=== PATIENT | female | born 1985 | race Caucasian/White ===

== ENCOUNTER 2019-11-13 18:01 | Observation (INO) | payer OTHER ==
[2019-11-13 18:26] LABS: Glucose,Whole Blood 102 mg/dL (75-99)
[2019-11-13 18:36] LABS: Basophils % (A) 1 %; Eosinophils # (A) 0.1 k/uL (0-0.7); Eosinophils % (A) 2 %; HCT 39.2 % (34.0-46.0); HGB 12.6 gm/dL (11.4-16.0); Lymphocytes # (A) 2.5 k/uL (1.0-4.8); Lymphocytes % (A) 43 %; MCH 28.8 pg (25.0-35.0); Mean Platelet Volume 7.7; Monocytes # (A) 0.4 k/uL (0-1.0); Monocytes % (A) 7 %; Neutrophils # (A) 2.6 k/uL (1.3-7.7); Neutrophils % (A) 45 %; Platelet Count 158 k/uL (150-450); RBC 4.36 m/uL (3.80-5.40); WBC 5.8 k/uL (3.8-10.6)
--- NOTE | 2019-11-13 18:36 | ED ---
Overdose HPI - General Chief Complaint: Overdose Stated Complaint: Poss overdose Time Seen by Provider: 11/13/19 18:30 Source: patient, RN notes reviewed, old records reviewed Mode of arrival: wheelchair Limitations: no limitations - History of Present Illness Initial Comments: This is a 34-year-old female DF for evaluation patient presents today for ac cidental versus intentional overdose, patient denies suicidal thoughts. Patient here is today is very Unresponsive secondary to clinical condition, patient does and as prescribed psychiatric medications takes a lot of these medications tonight. Patient is very sleepy and slow to respond MD Complaint: intentional overdose, accidental overdose, other (Unknown) -: unknown Intent: unwilling to say How Overdose Was Discovered: family/friend present at time Context: Accidental Overdose: uncertain what happened Associated Symptoms: depression Treatments Prior to Arrival: none - Related Data Allergies Allergy/AdvReac Type Severity Reaction Status Date / Time No Known Allergies Allergy Verified 11/13/19 18:10 Review of Systems ROS Statement: Those systems with pertinent positive or pertinent negative responses have been documented in the HPI. ROS Other: All systems not noted in ROS Statement are negative. Past Medical History Past Medical History: Unable to Obtain History of Any Multi-Drug Resistant Organisms: None Reported Past Surgical History: Unable to Obtain Past Psychological History: Unable to Obtain Smoking Status: Current every day smoker Past Alcohol Use History: None Reported Past Drug Use History: None Reported General Exam Limitations: altered mental status General appearance: alert, lethargic Head exam: Present: atraumatic, normocephalic, normal inspection Eye exam: Present: normal appearance, PERRL, EOMI. Absent: scleral icterus, conjunctival injection, periorbital swelling ENT exam: Present: normal exam, mucous membranes moist Neck exam: Present: normal inspection. Absent: tenderness, meningismus, lymphadenopathy Respiratory exam: Present: normal lung sounds bilaterally. Absent: respiratory distress, wheezes, rales, rhonchi, stridor Cardiovascular Exam: Present: normal rhythm, tachycardia, normal heart sounds. Absent: systolic murmur, diastolic murmur, rubs, gallop, clicks GI/Abdominal exam: Present: soft, normal bowel sounds. Absent: distended, tenderness, guarding, rebound, rigid Extremities exam: Present: normal inspection, full ROM, normal capillary refill. Absent: tenderness, pedal edema, joint swelling, calf tenderness Back exam: Present: normal inspection Neurological exam: Present: alert, oriented X3, CN II-XII intact Psychiatric exam: Present: normal affect, normal mood Skin exam: Present: warm, dry, intact, normal color. Absent: rash Course Vital Signs 11/13/19 11/13/19 11/13/19 18:07 18:27 18:30 Temperature 98.7 F Pulse Rate 127 H 107 H Pulse Rate [ 105 H Finishing Wire Sawyer ] Respiratory 16 18 Rate Blood Pressure 129/87 131/95 O2 Sat by Pulse 98 99 Oximetry 11/13/19 11/13/19 11/13/19 19:00 19:15 19:30 Temperature Pulse Rate 87 87 87 Pulse Rate [ Finishing Wire Sawyer ] Respiratory 14 13 12 Rate Blood Pressure 102/70 97/65 95/73 O2 Sat by Pulse 100 100 98 Oximetry 11/13/19 19:45 Temperature Pulse Rate 79 Pulse Rate [ Finishing Wire Sawyer ] Respiratory 13 Rate Blood Pressure 109/79 O2 Sat by Pulse 99 Oximetry - Reevaluation(s) Reevaluation #1: 11/13/19 19:55 Medical records reviewed Reevaluation #2: 11/13/19 19:55 Patient still not really responding very well - Consultations Consultation #1: Spoke with Dr. London will admit this patient Medical Decision Making - Medical Decision Making 34 female DF for evaluation of altered mental status and unresponsiveness secondary to likely TCA accidental overdose versus intentional overdose will admit for monitoring of clinical condition and mental state and have psychiatric evaluation - Lab Data Result diagrams: 11/13/19 18:25 11/13/19 18:25 Lab Results 11/13/19 11/13/19 11/13/19 Range/Units 18:25 18:25 18:25 WBC 5.8 (3.8-10.6) k/uL RBC 4.36 (3.80-5.40) m/uL Hgb 12.6 (11.4-16.0) gm/dL Hct 39.2 (34.0-46.0) % MCV 90.0 (80.0-100.0) fL MCH 28.8 (25.0-35.0) pg MCHC 32.0 (31.0-37.0) g/dL RDW 13.0 (11.5-15.5) % Plt Count 158 (150-450) k/uL Neutrophils % 45 % Lymphocytes % 43 % Monocytes % 7 % Eosinophils % 2 % Basophils % 1 % Neutrophils # 2.6 (1.3-7.7) k/uL Lymphocytes # 2.5 (1.0-4.8) k/uL Monocytes # 0.4 (0-1.0) k/uL Eosinophils # 0.1 (0-0.7) k/uL Basophils # 0.0 (0-0.2) k/uL Sodium 138 (137-145) mmol/L Potassium 3.9 (3.5-5.1) mmol/L Chloride 106 (98-107) mmol/L Carbon Dioxide 23 (22-30) mmol/L Anion Gap 9 mmol/L BUN 7 (7-17) mg/dL Creatinine 0.72 (0.52-1.04) mg/dL Est GFR (CKD-EPI)AfAm >90 (>60 ml/min/1.73 sqM) Est GFR (CKD-EPI)NonAf >90 (>60 ml/min/1.73 sqM) Glucose 94 (74-99) mg/dL POC Glucose (mg/dL) 102 H (75-99) mg/dL POC Glu Brush Maker ID Ofelia Rivera Calcium 9.4 (8.4-10.2) mg/dL Total Bilirubin 0.4 (0.2-1.3) mg/dL AST 38 H (14-36) U/L ALT 33 (4-34) U/L Alkaline Phosphatase 65 (38-126) U/L Total Protein 7.2 (6.3-8.2) g/dL Albumin 4.7 (3.5-5.0) g/dL Urine Color Urine Appearance (Clear) Urine pH (5.0-8.0) Ur Specific Axson (1.001-1.035) Urine Protein (Negative) Urine Glucose (UA) (Negative) Urine Ketones (Negative) Urine Blood (Negative) Urine Nitrite (Negative) Urine Bilirubin (Negative) Urine Urobilinogen (<2.0) mg/dL Ur Leukocyte Esterase (Negative) Urine HCG, Qual (Not Detectd) Salicylates mg/dL Urine Opiates Screen (NotDetected) Ur Oxycodone Screen (NotDetected) Urine Methadone Screen (NotDetected) Ur Propoxyphene Screen (NotDetected) Acetaminophen ug/mL Ur Barbiturates Screen (NotDetected) U Tricyclic Antidepress (NotDetected) Ur Phencyclidine Scrn (NotDetected) Ur Amphetamines Screen (NotDetected) U Methamphetamines Scrn (NotDetected) U Benzodiazepines Scrn (NotDetected) Urine Cocaine Screen (NotDetected) U Marijuana (THC) Screen (NotDetected) Serum Alcohol <10 mg/dL 11/13/19 11/13/19 11/13/19 Range/Units 18:25 18:51 18:51 WBC (3.8-10.6) k/uL RBC (3.80-5.40) m/uL Hgb (11.4-16.0) gm/dL Hct (34.0-46.0) % MCV (80.0-100.0) fL MCH (25.0-35.0) pg MCHC (31.0-37.0) g/dL RDW (11.5-15.5) % Plt Count (150-450) k/uL Neutrophils % % Lymphocytes % % Monocytes % % Eosinophils % % Basophils % % Neutrophils # (1.3-7.7) k/uL Lymphocytes # (1.0-4.8) k/uL Monocytes # (0-1.0) k/uL Eosinophils # (0-0.7) k/uL Basophils # (0-0.2) k/uL Sodium (137-145) mmol/L Potassium (3.5-5.1) mmol/L Chloride (98-107) mmol/L Carbon Dioxide (22-30) mmol/L Anion Gap mmol/L BUN (7-17) mg/dL Creatinine (0.52-1.04) mg/dL Est GFR (CKD-EPI)AfAm (>60 ml/min/1.73 sqM) Est GFR (CKD-EPI)NonAf (>60 ml/min/1.73 sqM) Glucose (74-99) mg/dL POC Glucose (mg/dL) (75-99) mg/dL POC Glu Brush Maker ID Calcium (8.4-10.2) mg/dL Total Bilirubin (0.2-1.3) mg/dL AST (14-36) U/L ALT (4-34) U/L Alkaline Phosphatase (38-126) U/L Total Protein (6.3-8.2) g/dL Albumin (3.5-5.0) g/dL Urine Color Light Yellow Urine Appearance Clear (Clear) Urine pH 6.5 (5.0-8.0) Ur Specific Axson 1.002 (1.001-1.035) Urine Protein Negative (Negative) Urine Glucose (UA) Negative (Negative) Urine Ketones Negative (Negative) Urine Blood Negative (Negative) Urine Nitrite Negative (Negative) Urine Bilirubin Negative (Negative) Urine Urobilinogen <2.0 (<2.0) mg/dL Ur Leukocyte Esterase Negative (Negative) Urine HCG, Qual Not Detected (Not Detectd) Salicylates <1.0 mg/dL Urine Opiates Screen Not Detected (NotDetected) Ur Oxycodone Screen Not Detected (NotDetected) Urine Methadone Screen Not Detected (NotDetected) Ur Propoxyphene Screen Not Detected (NotDetected) Acetaminophen <10.0 ug/mL Ur Barbiturates Screen Not Detected (NotDetected) U Tricyclic Antidepress Detected H (NotDetected) Ur Phencyclidine Scrn Not Detected (NotDetected) Ur Amphetamines Screen Not Detected (NotDetected) U Methamphetamines Scrn Not Detected (NotDetected) U Benzodiazepines Scrn Not Detected (NotDetected) Urine Cocaine Screen Not Detected (NotDetected) U Marijuana (THC) Screen Not Detected (NotDetected) Serum Alcohol mg/dL 11/13/19 Range/Units 19:36 WBC (3.8-10.6) k/uL RBC (3.80-5.40) m/uL Hgb (11.4-16.0) gm/dL Hct (34.0-46.0) % MCV (80.0-100.0) fL MCH (25.0-35.0) pg MCHC (31.0-37.0) g/dL RDW (11.5-15.5) % Plt Count (150-450) k/uL Neutrophils % % Lymphocytes % % Monocytes % % Eosinophils % % Basophils % % Neutrophils # (1.3-7.7) k/uL Lymphocytes # (1.0-4.8) k/uL Monocytes # (0-1.0) k/uL Eosinophils # (0-0.7) k/uL Basophils # (0-0.2) k/uL Sodium (137-145) mmol/L Potassium (3.5-5.1) mmol/L Chloride (98-107) mmol/L Carbon Dioxide (22-30) mmol/L Anion Gap mmol/L BUN (7-17) mg/dL Creatinine (0.52-1.04) mg/dL Est GFR (CKD-EPI)AfAm (>60 ml/min/1.73 sqM) Est GFR (CKD-EPI)NonAf (>60 ml/min/1.73 sqM) Glucose (74-99) mg/dL POC Glucose (mg/dL) 98 (75-99) mg/dL POC Glu Brush Maker ID Kika Vcikers Calcium (8.4-10.2) mg/dL Total Bilirubin (0.2-1.3) mg/dL AST (14-36) U/L ALT (4-34) U/L Alkaline Phosphatase (38-126) U/L Total Protein (6.3-8.2) g/dL Albumin (3.5-5.0) g/dL Urine Color Urine Appearance (Clear) Urine pH (5.0-8.0) Ur Specific Axson (1.001-1.035) Urine Protein (Negative) Urine Glucose (UA) (Negative) Urine Ketones (Negative) Urine Blood (Negative) Urine Nitrite (Negative) Urine Bilirubin (Negative) Urine Urobilinogen (<2.0) mg/dL Ur Leukocyte Esterase (Negative) Urine HCG, Qual (Not Detectd) Salicylates mg/dL Urine Opiates Screen (NotDetected) Ur Oxycodone Screen (NotDetected) Urine Methadone Screen (NotDetected) Ur Propoxyphene Screen (NotDetected) Acetaminophen ug/mL Ur Barbiturates Screen (NotDetected) U Tricyclic Antidepress (NotDetected) Ur Phencyclidine Scrn (NotDetected) Ur Amphetamines Screen (NotDetected) U Methamphetamines Scrn (NotDetected) U Benzodiazepines Scrn (NotDetected) Urine Cocaine Screen (NotDetected) U Marijuana (THC) Screen (NotDetected) Serum Alcohol mg/dL - EKG Data -: EKG Interpreted by Me (EKG shows sinus tachycardia 125 DE 132 QRS 80 QTC 4: 30) Disposition Clinical Impression: Accidental drug overdose, Overdose of tricyclic antidepressants Narrative: r/o Suicide Attempt Disposition: ADMITTED IP TO THIS HOSP Condition: Fair Instructions (If sedation given, give patient instructions): Adult Overdose (ED) Is patient prescribed a controlled substance at d/c from ED?: No Referrals: Heidi Cabrera DO [Primary Care Provider] - 1-2 days
[2019-11-13 18:45] LABS: ALT 33 U/L (4-34); AST 38 U/L (14-36); African American GFR (CKD) >90 (>60 ml/min/1.73 sqM); Albumin 4.7 g/dL (3.5-5.0); Alcohol <10 mg/dL; Alkaline Phosphatase 65 U/L (38-126); Anion Gap 9 mmol/L; Blood Urea Nitrogen 7 mg/dL (7-17); Calcium 9.4 mg/dL (8.4-10.2); Carbon Dioxide 23 mmol/L (22-30); Chloride 106 mmol/L (98-107); Glucose 94 mg/dL (74-99); Non-African American GFR(CKD) >90 (>60 ml/min/1.73 sqM); Potassium 3.9 mmol/L (3.5-5.1); Sodium 138 mmol/L (137-145); Total Bilirubin 0.4 mg/dL (0.2-1.3); Total Protein 7.2 g/dL (6.3-8.2)
[2019-11-13 19:07] LABS: Appearance,Urine Clear (Clear); Bilirubin,Urine Negative (Negative); Blood,Urine Negative (Negative); Color,Urine Light Yellow; Glucose,Urine (UA) Negative (Negative); Ketones,Urine Negative (Negative); Leukocyte Esterase,Urine Negative (Negative); Nitrite,Urine Negative (Negative); PH, Urine 6.5 (5.0-8.0); Protein,Urine Negative (Negative); Specific Gravity,Urine 1.002 (1.001-1.035); Urobilinogen,Urine <2.0 mg/dL (<2.0)
[2019-11-13] MEDS ORDERED: SODIUM CHLORIDE 0.9% 2,000 ML IV ONE (19:15)
[2019-11-13 19:20] LABS: Amphetamine Screen,Urine Not Detected (NotDetected); Barbiturate Screen,Urine Not Detected (NotDetected); Benzodiazepines Screen,Urine Not Detected (NotDetected); Cocaine Screen,Urine Not Detected (NotDetected); Methadone Screen, Urine Not Detected (NotDetected); Opiate Screen,Urine Not Detected (NotDetected); Oxycodone Screen, Urine Not Detected (NotDetected); Phencyclidine Screen,Urine Not Detected (NotDetected); Tricyclic Antidepressant,Urine Detected (NotDetected); Urn Cannabinoid Scrn Not Detected (NotDetected)
[2019-11-13 19:25] LABS: Acetaminophen <10.0 ug/mL; Salicylate <1.0 mg/dL
[2019-11-13 19:37] LABS: Glucose,Whole Blood 98 mg/dL (75-99)
[2019-11-13] MEDS ORDERED: SODIUM CHLORIDE 0.9% 1,000 ML IV ONE (19:57)
[2019-11-14 05:31] VITALS: RESP 16
[2019-11-14] MEDS ORDERED: QUEtiapine 25 MG TAB PO STA (11:08)
--- NOTE | 2019-11-14 12:23 | P.HPIM ---
History of Present Illness H&P Date: 11/14/19 Chief Complaint: overdose Veronika Noland is a 34 yo F with PMH of insomnia who was brought to the ED by her mother after she became somnolent and started to hallucinate yesterday. Pt notes she has dealt with insomnia for years as well as anxiety and had been on seroquel previously. In the past few months she has been ordering a medication Phenibut over the counter online to help with her insomnia. In the past few weeks she had grown more tolerant to it and had recently increased her dose to 8-11 pills per day. She recently discussed insomnia with her PCP and was started on elavil. Yesterday she took only a quarter tablet of elavil which was 25 mg. In the ED her vitals were stable, UDS positive for only TCA. Today, she denies suicidal ideation and denies she was trying to overdose. Review of Systems All systems: negative Constitutional: Denies chills, Denies fever Eyes: denies blurred vision, denies pain Ears, nose, mouth and throat: Denies headache, Denies sore throat Cardiovascular: Denies chest pain, Denies shortness of breath Respiratory: Denies cough Gastrointestinal: Denies abdominal pain, Denies diarrhea, Denies nausea, Denies vomiting Genitourinary: Denies dysuria, Denies hematuria Musculoskeletal: Denies myalgias Integumentary: Denies pruritus, Denies rash Neurological: Reports weakness, Denies numbness, Denies seizures Psychiatric: Reports anxiety, Reports sleep disturbances, Denies depression, Denies suicidal ideation Endocrine: Denies fatigue, Denies weight change Past Medical History Past Medical History: No Reported History Additional Past Medical History / Comment(s): seizures. History of Any Multi-Drug Resistant Organisms: None Reported Past Surgical History: No Surgical Hx Reported Past Anesthesia/Blood Transfusion Reactions: No Reported Reaction Past Psychological History: Anxiety, Depression Smoking Status: Former smoker Past Alcohol Use History: None Reported Additional Past Alcohol Use History / Comment(s): patient stated smoking in Mar 2019 and quit smoking in September 2019. patient states history of ETOH, last drink was about a year ago. Past Drug Use History: None Reported Medications and Allergies Home Medications Medication Instructions Recorded Confirmed Type Baclofen [Lioresal] 20 mg PO TID 11/13/19 11/13/19 History Esomeprazole Magnesium [NexIUM] 40 mg PO DAILY 11/13/19 11/14/19 History Gabapentin 600 mg PO TID 11/13/19 11/13/19 History Lansoprazole [Prevacid] 30 mg PO DAILY 11/13/19 11/14/19 History Medroxyprogesterone Acetate 150 mg IM Q90D 11/13/19 11/14/19 History [Depo-Provera] cloNIDine HCL [Catapres] 0.2 mg PO HS 11/13/19 11/14/19 History ALPRAZolam [Xanax] 0.25 mg PO BID PRN 11/14/19 11/14/19 History Amitriptyline HCl [Elavil] 25 mg PO HS 11/14/19 11/14/19 History clonazePAM 0.5 mg PO TID PRN 11/14/19 11/14/19 History Allergies Allergy/AdvReac Type Severity Reaction Status Date / Time No Known Allergies Allergy Verified 11/13/19 20:01 Physical Exam Vitals: Vital Signs Temp Pulse Pulse Resp BP BP Pulse Ox 11/14/19 08:00 101 H 16 11/14/19 05:30 98.1 F 101 H 16 116/80 99 11/13/19 21:04 77 14 106/74 99 11/13/19 20:00 76 13 107/74 99 11/13/19 19:45 79 13 109/79 99 11/13/19 19:30 87 12 95/73 98 11/13/19 19:15 87 13 97/65 100 11/13/19 19:00 87 14 102/70 100 11/13/19 18:30 105 H 11/13/19 18:27 107 H 18 131/95 99 11/13/19 18:07 98.7 F 127 H 16 129/87 98 Intake and Output 11/13/19 11/14/19 11/14/19 22:59 06:59 14:59 Intake Total 240 Balance 240 Intake: Oral 240 Other: Voiding Method Toilet Toilet # Voids 1 2 6 Weight 65.771 kg General: well nourished, well developed, NAD. Vitals reviewed Eyes: PERRL, EOMI, conjunctiva normal HENT: normocephalic, mucus membranes moist Neck: supple, no JVD Lungs: normal respiratory effort, no wheezes or rales CV: Regular rate and rhythm, no murmur. Peripheral pulses 2+ Abdomen: soft, nondistended, no organomegaly Lymph: no cervical or axillary LAD Skin: warm and dry. Neuro: A&Ox3. Anxious. No tremor Results CBC & Chem 7: 11/13/19 18:25 11/13/19 18:25 Labs: Abnormal Lab Results - Last 24 Hours (Table) 11/13/19 11/13/19 11/13/19 Range/Units 18:25 18:25 18:51 POC Glucose (mg/dL) 102 H (75-99) mg/dL AST 38 H (14-36) U/L U Tricyclic Antidepress Detected H (NotDetected) Thrombosis Risk Factor Assmnt - Choose All That Apply Any of the Below Risk Factors Present?: No Other Risk Factors: No Other congenital or acquired thrombophilia - If yes, enter type in comment: No Thrombosis Risk Factor Assessment Level: Very Low Risk Assessment and Plan (1) Toxic encephalopathy Current Visit: Yes Status: Acute Code(s): G92 - TOXIC ENCEPHALOPATHY SNOMED Code(s): 43236707 (2) Insomnia Current Visit: Yes Status: Acute Code(s): G47.00 - INSOMNIA, UNSPECIFIED SNOMED Code(s): 488509452 (3) Anxiety Current Visit: Yes Status: Acute Code(s): F41.9 - ANXIETY DISORDER, UNSPECIFIED SNOMED Code(s): 59395822 (4) Accidental drug overdose Current Visit: Yes Status: Acute Code(s): T50.901A - POISONING BY UNSP DRUG/MEDS/BIOL SUBST, ACCIDENTAL, INIT SNOMED Code(s): 59109925 Plan: 1. Accidental drug overdose due to phenibut compounded by TCA. Given IVF. Pt denies SI at this time. Psychiatry consulted for eval 2. Phenibut withdrawal. With pt taking 3000 mg daily. Start seroquel 25 mg qam and 100 qhs 3. Gen anxiety disorder
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
[2019-11-14] MEDS ORDERED: QUEtiapine 100 MG TAB PO SCH (21:00)
[2019-11-15 05:07] VITALS: TEMP 97.9
[2019-11-15] MEDS ORDERED: IBUPROFEN 400 MG TAB PO PRN (06:28)
[2019-11-15] MEDS ORDERED: ESCITALOPRAM 10 MG TAB PO SCH (09:00)
[2019-11-15] MEDS ORDERED: QUEtiapine 100 MG TAB PO SCH (09:45)
[2019-11-15 10:52] VITALS: BP 168/91; PULSE 86
[2019-11-15] MEDS ORDERED: cloNIDine HCL 0.1 MG TAB PO SCH (11:00)
--- NOTE | 2019-11-15 15:37 | P.DS ---
Providers Date of admission: 11/13/19 19:57 Expected date of discharge: 11/15/19 Attending physician: Polo London MD Consults: 11/13/19 19:57 Consult Physician Routine Consulting Provider: Alfredo Hung Consult Reason/Comments: depression Do you want consulting provider notified?: Yes Primary care physician: Heidi Cabrera [facility] Course: Patient left AMA Please refer to EMR for current diagnoses, further details. The impression and plan of care has been dictated as directed. : I performed a history and examination of this patient, discussed the same with the dictator. I agree with the dictator's note ,documented as a scribe. Any additional findings or plans will be noted. Plan - Discharge Summary Discharge Rx Participant: No New Discharge Prescriptions: No Action cloNIDine HCL [Catapres] 0.2 mg PO HS Medroxyprogesterone Acetate [Depo-Provera] 150 mg IM Q90D Lansoprazole [Prevacid] 30 mg PO DAILY Gabapentin 600 mg PO TID Baclofen [Lioresal] 20 mg PO TID Esomeprazole Magnesium [NexIUM] 40 mg PO DAILY ALPRAZolam [Xanax] 0.25 mg PO BID PRN PRN Reason: Anxiety clonazePAM 0.5 mg PO TID PRN PRN Reason: Anxiety Amitriptyline HCl [Elavil] 25 mg PO HS Discharge Medication List Baclofen [Lioresal] 20 mg PO TID 11/13/19 [History] Esomeprazole Magnesium [NexIUM] 40 mg PO DAILY 11/13/19 [History] Gabapentin 600 mg PO TID 11/13/19 [History] Lansoprazole [Prevacid] 30 mg PO DAILY 11/13/19 [History] Medroxyprogesterone Acetate [Depo-Provera] 150 mg IM Q90D 11/13/19 [History] cloNIDine HCL [Catapres] 0.2 mg PO HS 11/13/19 [History] ALPRAZolam [Xanax] 0.25 mg PO BID PRN 11/14/19 [History] Amitriptyline HCl [Elavil] 25 mg PO HS 11/14/19 [History] clonazePAM 0.5 mg PO TID PRN 11/14/19 [History] Follow up Appointment(s)/Referral(s): Heidi Cabrera DO [Primary Care Provider] - 1-2 days Patient Instructions/Handouts: Adult Overdose (ED) Discharge Disposition: Left Against Medical Advice
[2019-11-15] MEDS ORDERED: QUEtiapine 200 MG TAB PO SCH (21:00)
[2019-11-16] MEDS ORDERED: PANTOPRAZOLE 40 MG TABLET PO SCH (07:30)
== END 2019-11-15 11:39 | disposition left against medical advice (07) ==
LOC: SUPCPDRO 18:01 → EC 18:01 → 5NMEDONC 19:57 → INTOOBSV 19:57 → 5NMEDONC 20:27 → UNDODISIN 11-15 11:39
PROVIDERS: ADMIT Family Medicine; ATTEND Family Medicine
DX: T43.011A Poisoning by tricyclic antidepressants, accidental (unintentional), initial encounter (principal); G92 Toxic encephalopathy; F32.9 Major depressive disorder, single episode, unspecified; F41.1 Generalized anxiety disorder; F51.04 Psychophysiologic insomnia; R44.1 Visual hallucinations; Z53.29 Procedure and treatment not carried out because of patient's decision for other reasons; F17.200 Nicotine dependence, unspecified, uncomplicated; R56.9 Unspecified convulsions; F10.10 Alcohol abuse, uncomplicated; F13.10 Sedative, hypnotic or anxiolytic abuse, uncomplicated; Z11.59 Encounter for screening for other viral diseases; Z79.899 Other long term (current) drug therapy; Z72.89 Other problems related to lifestyle; Z81.8 Family history of other mental and behavioral disorders
CPT/HCPCS: 96361 ×2; 96360; 99285; 36415; 93005; 80053; 85025; 81003; 81025; 80306; 83520; G0378 ×3; G0480 ×2; U0003; 80320; 80329

== ENCOUNTER 2020-11-06 18:39 | Emergency (ER) | payer OTHER ==
[2020-11-06 18:50] VITALS: BP 93/60; PULSE 81; RESP 20; TEMP 98
--- NOTE | 2020-11-06 18:59 | ED ---
Recheck HPI - General Chief Complaint: Recheck/Abnormal Lab/Rx Stated Complaint: Drug test Time Seen by Provider: 11/06/20 18:59 Source: patient Mode of arrival: ambulatory Limitations: no limitations - History of Present Illness Initial Comments: 35-year-old female presents to the emergency department for a drug screen. Patient states she needs a drug screen addition to an alcohol testing for legal purposes. Patient reports her blood pressures typically in the 90s systolic. She does not have any other complaints. - Related Data Home Medications Medication Instructions Recorded Confirmed Baclofen [Lioresal] 20 mg PO TID 11/13/19 11/13/19 Esomeprazole Magnesium [NexIUM] 40 mg PO DAILY 11/13/19 11/14/19 Gabapentin 600 mg PO TID 11/13/19 11/13/19 Lansoprazole [Prevacid] 30 mg PO DAILY 11/13/19 11/14/19 Medroxyprogesterone Acetate 150 mg IM Q90D 11/13/19 11/14/19 [Depo-Provera] cloNIDine HCL [Catapres] 0.2 mg PO HS 11/13/19 11/14/19 ALPRAZolam [Xanax] 0.25 mg PO BID PRN 11/14/19 11/14/19 Amitriptyline HCl [Elavil] 25 mg PO HS 11/14/19 11/14/19 clonazePAM 0.5 mg PO TID PRN 11/14/19 11/14/19 Allergies Allergy/AdvReac Type Severity Reaction Status Date / Time No Known Allergies Allergy Verified 11/06/20 18:51 Review of Systems ROS Statement: Those systems with pertinent positive or pertinent negative responses have been documented in the HPI. ROS Other: All systems not noted in ROS Statement are negative. Past Medical History Past Medical History: Seizure Disorder Additional Past Medical History / Comment(s): seizures. History of Any Multi-Drug Resistant Organisms: None Reported Past Surgical History: No Surgical Hx Reported Past Anesthesia/Blood Transfusion Reactions: No Reported Reaction Past Psychological History: Anxiety, Depression Smoking Status: Current some day smoker Past Alcohol Use History: None Reported Past Drug Use History: None Reported General Exam Limitations: no limitations General appearance: alert, in no apparent distress Head exam: Present: atraumatic, normocephalic, normal inspection Eye exam: Present: normal appearance Pupils: Present: normal accommodation ENT exam: Present: normal exam, normal oropharynx, mucous membranes moist Neck exam: Present: normal inspection, full ROM. Absent: tenderness Respiratory exam: Present: normal lung sounds bilaterally. Absent: respiratory distress Cardiovascular Exam: Present: regular rate, normal rhythm, normal heart sounds Extremities exam: Present: normal inspection, full ROM Back exam: Present: normal inspection, full ROM Neurological exam: Present: alert, oriented X3, normal gait Psychiatric exam: Present: normal affect, normal mood Skin exam: Present: warm, dry, intact, normal color Course Vital Signs 11/06/20 18:48 Temperature 98.0 F Pulse Rate 81 Respiratory 20 Rate Blood Pressure 93/60 O2 Sat by Pulse 98 Oximetry Medical Decision Making - Medical Decision Making 35-year-old female presents to the emergency department for drug and alcohol testing. Physical examination is unremarkable. Patient is hypertensive at baseline. Disposition Clinical Impression: Encounter for drug screening, Alcohol screening Disposition: HOME SELF-CARE Condition: Stable Additional Instructions: Please return to the Emergency Department if symptoms worsen or any other concerns. Is patient prescribed a controlled substance at d/c from ED?: No Referrals: Alin Bernardo DO [Primary Care Provider] - 1-2 days Time of Disposition: 19:07
[2020-11-06 20:02] LABS: Amphetamine Screen,Urine Detected (NotDetected); Barbiturate Screen,Urine Not Detected (NotDetected); Benzodiazepines Screen,Urine Detected (NotDetected); Cocaine Screen,Urine Not Detected (NotDetected); Methadone Screen, Urine Not Detected (NotDetected); Opiate Screen,Urine Not Detected (NotDetected); Oxycodone Screen, Urine Not Detected (NotDetected); Phencyclidine Screen,Urine Not Detected (NotDetected); Tricyclic Antidepressant,Urine Not Detected (NotDetected); Urn Cannabinoid Scrn Not Detected (NotDetected)
== END 2020-11-06 19:34 | disposition home or self-care (01) ==
LOC: EC 18:39
DX: Z02.83 Encounter for blood-alcohol and blood-drug test (principal); G40.909 Epilepsy, unspecified, not intractable, without status epilepticus; F32.9 Major depressive disorder, single episode, unspecified; F41.9 Anxiety disorder, unspecified; F17.200 Nicotine dependence, unspecified, uncomplicated
CPT/HCPCS: 80306; 99282

== ENCOUNTER 2020-12-16 01:40 | Emergency (ER) | payer OTHER ==
[2020-12-16 01:52] VITALS: RESP 18
[2020-12-16] MEDS ORDERED: LORazepam 2 MG/ML INJ IV STA (01:55)
[2020-12-16] MEDS ORDERED: SODIUM CHLORIDE 0.9% 1,000 ML IV ONE ×2 (01:55→04:22)
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
--- NOTE | 2020-12-16 02:42 | XR ---
EXAMINATION TYPE: XR chest 1V portable DATE OF EXAM: 12/16/2020 COMPARISON: NONE HISTORY: Altered mental status TECHNIQUE: Single view FINDINGS: Heart and mediastinum are normal. Lungs are clear. Diaphragm is normal. Bony thorax is inta ct. IMPRESSION: Normal chest
[2020-12-16 02:50] LABS: Appearance,Urine Clear (Clear); Bilirubin,Urine Negative (Negative); Blood,Urine Negative (Negative); Color,Urine Light Yellow; Glucose,Urine (UA) Negative (Negative); Ketones,Urine Negative (Negative); Leukocyte Esterase,Urine Negative (Negative); Nitrite,Urine Negative (Negative); Protein,Urine Negative (Negative); Specific Gravity,Urine 1.007 (1.001-1.035); Urobilinogen,Urine <2.0 mg/dL (<2.0)
[2020-12-16 03:12] LABS: Basophils # (A) 0.1 k/uL (0-0.2); Basophils % (A) 1 %; Eosinophils # (A) 0.3 k/uL (0-0.7); Eosinophils % (A) 4 %; HCT 37.8 % (34.0-46.0); HGB 12.8 gm/dL (11.4-16.0); Lymphocytes # (A) 3.2 k/uL (1.0-4.8); Lymphocytes % (A) 45 %; MCH 30.3 pg (25.0-35.0); MCHC 33.8 g/dL (31.0-37.0); MCV 89.8 fL (80.0-100.0); Mean Platelet Volume 6.9; Monocytes # (A) 0.3 k/uL (0-1.0); Monocytes % (A) 5 %; Neutrophils % (A) 42 %; Platelet Count 227 k/uL (150-450); RBC 4.21 m/uL (3.80-5.40); RDW 14.3 % (11.5-15.5); WBC 7.1 k/uL (3.8-10.6)
[2020-12-16 03:15] LABS: ALT 17 U/L (4-34); AST 25 U/L (14-36); African American GFR (CKD) >90 (>60 ml/min/1.73 sqM); Albumin 4.3 g/dL (3.5-5.0); Alcohol <10 mg/dL; Alkaline Phosphatase 64 U/L (38-126); Anion Gap 10 mmol/L; Blood Urea Nitrogen 19 mg/dL (7-17); Calcium 9.8 mg/dL (8.4-10.2); Carbon Dioxide 22 mmol/L (22-30); Chloride 105 mmol/L (98-107); Glucose 96 mg/dL (74-99); Non-African American GFR(CKD) >90 (>60 ml/min/1.73 sqM); Potassium 4.7 mmol/L (3.5-5.1); Sodium 137 mmol/L (137-145); Total Bilirubin 0.1 mg/dL (0.2-1.3); Total Protein 7.3 g/dL (6.3-8.2)
[2020-12-16 03:21] LABS: INR 0.9 (<1.2); Prothrombin Time 9.7 sec (9.0-12.0)
[2020-12-16 03:29] LABS: Amphetamine Screen,Urine Not Detected (NotDetected); Cocaine Screen,Urine Not Detected (NotDetected); Opiate Screen,Urine Not Detected (NotDetected); Phencyclidine Screen,Urine Not Detected (NotDetected); Urn Cannabinoid Scrn Not Detected (NotDetected)
--- NOTE | 2020-12-16 03:29 | CT ---
EXAMINATION TYPE: CT brain wo con DATE OF EXAM: 12/16/2020 COMPARISON: None HISTORY: AMS/alcohol withdrawl. no prior on PACS CT DLP: 1173.4 mGycm Automated exposure control for dose reduction was used. Ventricles have normal size. There is no mass effect nor midline shift. There is no sign of intracran ial hemorrhage. Calvarium is intact. Skull base is intact. IMPRESSION: Negative unenhanced head CT scan.
[2020-12-16 03:30] LABS: Barbiturate Screen,Urine Not Detected (NotDetected); Benzodiazepines Screen,Urine Detected (NotDetected); Methadone Screen, Urine Not Detected (NotDetected); Oxycodone Screen, Urine Not Detected (NotDetected); Tricyclic Antidepressant,Urine Detected (NotDetected)
[2020-12-16 06:33] VITALS: TEMP 98
[2020-12-16 07:50] VITALS: BP 110/81; PULSE 76
== END 2020-12-16 07:54 | disposition home or self-care (01) ==
LOC: EC 01:40
DX: F10.231 Alcohol dependence with withdrawal delirium (principal); R41.82 Altered mental status, unspecified; G43.909 Migraine, unspecified, not intractable, without status migrainosus; F32.9 Major depressive disorder, single episode, unspecified; F41.9 Anxiety disorder, unspecified; F17.200 Nicotine dependence, unspecified, uncomplicated; Y90.0 Blood alcohol level of less than 20 mg/100 ml
CPT/HCPCS: 36415; 70450; 71045; 80053; 80306; 80320; 81003; 82140; 84484; 85025; 85610; 85730; 93005; 96361; 96374; 99285